=== PATIENT | male | born 1955 | race Caucasian/White ===

== ENCOUNTER → 2017-02-26 10:40 | Outpatient (CLI) | payer OTHER ==
[2015-08-16 08:56] VITALS: BMI 26.9
[~2017-02-26 10:40] MED LIST: FLOMAX0.4 MG PO; PROTONIX40 MG PO
== END | disposition home or self-care (01) ==
LOC: D.RAD 10:30
DX: K21.9 Gastro-esophageal reflux disease without esophagitis (principal)